=== PATIENT | female | born 1965 | race Caucasian/White ===

== ENCOUNTER → 2017-08-19 | Outpatient (CLI) | payer OTHER ==
[~2017-08-19] MED LIST: ACETAMINOPHEN; B12INJ IM; BENADRYL25 MG PO; BETAMETHASONE D15 G1 TOP; CARDIZEM CD120 MG PO; CARDIZEM CD180 MG PO; CARDIZEM60 MG PO; DUTOPROL 50-121 EACH PO; HYDROCHLOROTH12.5 M2 PO; HYDROCODONE; IBUPROFEN 200200 M1 PO; MULTIVITAMINS1 EAC7 PO; NEXIUM40 MG PO; ONDANSETRON HCL4 M2 PO; PRADAXA150 MG PO; RYTHMOL SR225 MG PO; SOTALOL 120 MG120 M1 PO; SOTALOL AF120 MG PO; THERA1 EAC1 PO; VITAMIN D 5050000 I1 PO; VITAMIN D1000 UNI1 PO; XARELTO10 MG PO; ZYRTEC10 MG PO
[2017-08-19 09:19] LABS: HEMATOCRIT 39.7 % (37.0-47.0); HEMOGLOBIN 13.6 gm/dL (12.0-15.0); MCH 31.7 pg (26.0-34.0); MCHC 34.2 g/dL (28.0-37.0); MCV 92.8 fL (80.0-100.0); RBC 4.28 mil/uL (4.20-5.00); RDW 13.3 % (10.5-14.5)
[2017-08-19 09:40] LABS: CALCIUM 8.9 mg/dL (8.5-10.1); CREATININE 0.8 mg/dL (0.6-1.0); POTASSIUM 4.3 mmol/L (3.5-5.1)
[2017-08-19 09:45] LABS: ALBUMIN 3.4 g/dL (3.4-5.0); TOTAL BILIRUBIN 0.4 mg/dL (<0.1-1.0); TOTAL PROTEIN 6.6 g/dL (6.4-8.2)
== END ==
LOC: CAT 08:14
PROVIDERS: Internal Medicine Cardiovascular Disease
DX: I48.91 Unspecified atrial fibrillation (principal); I25.10 Atherosclerotic heart disease of native coronary artery without angina pectoris; J98.11 Atelectasis

== ENCOUNTER 2017-09-02 06:53 | Inpatient (IN) | payer OTHER ==
[~2017-09-02] VITALS: Ht 165.1 cm; Wt 108.0 kg
--- NOTE | ~2017-09-02 | D ---
[facility] [place] [address] DISCHARGE SUMMARY Name: FLO KHAN Room #: 201-P [facility] M.R.#: [id number] Admission: 09/02/17 Attend Phys: Abner Devine MD Discharge: 09/05/17 Date of : 67 Report #: [id number] THIS REPORT FOR: //name// CC: Abner Devine Tunde Youssef DATE OF SERVICE: 09/05/2017 DISCHARGE DIAGNOSIS: Paroxysmal atrial fibrillation. PROCEDURES PERFORMED: AFib ablation. HISTORY OF PRESENT ILLNESS: The patient is a 52-year-old female with history of paroxysmal AFib, here for an ablation. She underwent successful AFib ablation with isolation of the pulmonary veins. There were no procedural complications. HOSPITAL COURSE: Post-procedure, the patient did go back into atrial fibrillation with rapid ventricular response. As such, I recommended starting an IV amiodarone drip. On Tuesday, she was still having AFib with RVR, we transitioned her over to oral amiodarone and on Tuesday, she remained in sinus rhythm other than some brief episodes of paroxysmal AFib. On Tuesday, she was doing well. She was not having any chest pain or shortness of breath. Her telemetry showed sinus rhythm. As such, she was deemed stable for discharge home. She will be discharged on her Pradaxa 150 twice a day, amiodarone 400 mg a day for 1 week and then decrease the dose to 200 mg a day. We increased her diltiazem to 240 mg a day. She will follow up with me in clinic in 2 weeks. <ELECTRONICALLY SIGNED> By: Abner Devine MD 09/30/17 1752 0842 0901 Abner Devine MD /nt
--- NOTE | ~2017-09-02 | P ---
[facility] [place] [address] PROCEDURE REPORT Name: FLO KHAN Room #: 201-P [facility] M.R.#: [id number] Admission: 09/02/17 Attend Phys: Abner Devine MD Discharge: 09/05/17 Date of : 67 Report #: [id number] THIS REPORT FOR: //name// CC: Abner Devine Tunde Youssef PROCEDURE PERFORMED: 1. Ablation of atrial fibrillation, CPT code 20296. 2. 3D mapping, CPT code 93318. 3. Intracardiac echo, CPT code 35169. 4. EP left atrial pacing and recording, CPT code 47954. HISTORY: The patient is a 52-year-old with a history of prior gastric bypass surgery as well as paroxysmal atrial fibrillation who has had worsening episodes despite sotalol therapy. She is here for an AFib ablation. ANESTHESIA: The patient underwent general anesthesia with no anesthesia related complications. DESCRIPTION OF PROCEDURE: The patient underwent informed consent. We discussed the details of the procedure including the risks, which include but not limited to bleeding, vascular damage, cardiac perforation as well as stroke or OR. She understood these risks and was willing to proceed. As such, the patient was brought to the EP laboratory in a fasting and nonsedated state and prepped and draped in a sterile fashion. I then obtained access to the right femoral vein x 3, placing an 8-Austrian, 9-Austrian and 7-Austrian locking sheath into the right femoral artery using the modified Seldinger technique. Next, under fluoroscopy, I placed an ice catheter and a decapolar catheter into the right atrium. Of note, it was difficult to enter her heart from the inferior vena cava for whatever reason. I then was able to get the ice catheter at a satisfactory position. I then paced the decapolar catheter into the coronary sinus. Of note, this kept slipping out despite 3-4 attempts of putting it into the coronary sinus. As such, this catheter was left in the right atrium. Next, the patient was systemically heparinized and an SL1 sheath was taken to the right atrium. Of note, I spent probably 10 minutes just trying to get my wire into the right atrium and then placing it up into the superior vena cava, but then was able to position it. I had to make 3 attempts to perform a transseptal due to her challenging anatomy. Her atrium was a rather flat and finding an appropriate location to perform transseptal was somewhat challenging. Eventually, I was able to get transseptal using my [place] needle. I was able to exchange my SL1 sheath for my cryo sheath. At baseline, the patient was in atrial fibrillation with rapid ventricular response. Using intracardiac ultrasound, it appeared that the patient had almost a left common ostium. Then, there were right superior and right inferior pulmonary veins. This was merged with the CT scan and a 3D geometry of the left atrium was created using a Lasso catheter. Next, I placed the cryoballoon into the left [address] [address] PROCEDURE REPORT Name: FLO KHAN Room #: 201-P [facility] M.R.#: [id number] Admission: 09/02/17 Attend Phys: Abner Devine MD Discharge: 09/05/17 Date of : 67 Report #: [id number] atrium and we performed a 3-4 freezes in the superior branch of the left common ostium and performed 3 freezes in the inferior branch of the left common ostium. It was difficult to discern if I had achieved isolation; therefore, we performed a cardioversion, but she rapidly went back into AFib. I therefore decided to turn attention to the other veins. I then isolated the right superior pulmonary vein and while freezing this vein, there was weakening of the phrenic nerve. I came off and after 5-10 minutes, the phrenic nerve was back to normal strength. Fortunately, the right superior vein isolated during the first freeze. I then turned my attention to the right inferior pulmonary vein and this vein isolated within 30-40 seconds. As such, I performed a single 3-minute freeze in this vessel. I then turned my attention to the left common vessel. I removed the cryoablation balloon and placed the Lasso catheter into the inferior and superior branches of the common ostium and this appeared to be isolated. I did perform a cardioversion to restore sinus rhythm and this appeared isolated. We performed pacing around the Lasso and there was evidence of exit block throughout the left superior, left inferior and common region of this vessel. As such, the patient was maintaining sinus rhythm. All vessels were isolated and the procedure was concluded. I pulled the cryo sheath to the right atrium. I then used intracardiac ultrasound to verify that there was no evidence of a pericardial effusion. I then pulled all catheters. The patient received systemic protamine and once the ACT was within acceptable range, sheaths were pulled, hemostasis was obtained and the patient awoke neurologically and hemodynamically intact. CONCLUSIONS: 1. Successful isolation of the left superior, left inferior, right superior and right inferior pulmonary veins. 2. Transient phrenic nerve weakening during the freezing of the right superior pulmonary veins with return to full strength at the conclusions of the procedure. <ELECTRONICALLY SIGNED> By: Abner Devine MD 09/30/17 1754 1143 2111 Abner Devine MD /jemima
[~2017-09-02 06:53] MED LIST changes: -NEXIUM40 MG PO; -PRADAXA150 MG PO
[2017-09-02] MEDS ORDERED: NEXIUM40 MG PO (07:09)
[2017-09-02] MEDS ORDERED: PRADAXA150 MG PO (07:09)
[2017-09-02] MEDS ORDERED: SOTALOL 120 MG120 M1 PO (07:12)
[2017-09-02 07:16] LABS: HEMATOCRIT 40.8 % (37.0-47.0); HEMOGLOBIN 13.7 gm/dL (12.0-15.0); MCH 31.5 pg (26.0-34.0); MCHC 33.6 g/dL (28.0-37.0); MCV 93.8 fL (80.0-100.0); PLATELET COUNT 299 thou/uL (150-400); RBC 4.35 mil/uL (4.20-5.00); WBC 6.2 thou/uL (4.0-11.0)
[2017-09-02 07:24] LABS: CALCIUM 9.3 mg/dL (8.5-10.1); CREATININE 0.8 mg/dL (0.6-1.0); POTASSIUM 3.4 mmol/L (3.5-5.1)
[2017-09-02 07:30] LABS: ALBUMIN 3.6 g/dL (3.4-5.0); TOTAL BILIRUBIN 0.4 mg/dL (<0.1-1.0); TOTAL PROTEIN 7.4 g/dL (6.4-8.2)
[2017-09-02 07:36] VITALS: BP 137/88
[2017-09-02 07:39] LABS: APTT 30.1 Seconds (24.5-32.8); INR 1.1; PROTIME 10.9 Seconds (9.3-11.4)
[2017-09-02 08:15] LABS: ABSOLUTE NEUTROPHILS 3.7 thou/uL (1.4-8.2); ATYPICAL LYMPHS 1 %
[2017-09-02 13:53] VITALS: BP 125/56
[2017-09-02 16:05] VITALS: BP 120/75
[2017-09-02 20:45] VITALS: BP 108/55
[2017-09-03 05:06] VITALS: BP 113/76
[2017-09-03 08:03] VITALS: BP 119/70
[2017-09-03 11:01] VITALS: BP 141/72
[2017-09-03 15:35] VITALS: BP 126/847
[2017-09-03 19:16] VITALS: BP 111/65
[2017-09-04 07:35] VITALS: BP 112/61
[2017-09-04 11:20] VITALS: BP 112/70
[2017-09-04 15:40] VITALS: BP 141/72
[2017-09-04 19:28] VITALS: BP 118/61
[2017-09-04 23:17] VITALS: BP 110/54
[2017-09-05 03:04] VITALS: BP 120/76
[2017-09-05 08:00] VITALS: BP 119/66
[2017-09-05 10:19] VITALS: BP 119/66
== END 2017-09-05 10:50 | disposition home or self-care (01) | DRG 274 ==
LOC: CATH 06:53 → 2N 13:29 → CATH 15:26 → 2N 09-05 10:50
PROVIDERS: Internal Medicine Cardiovascular Disease
PROC: 02K83ZZ Map Conduction Mechanism, Percutaneous Approach (ICD-10-PCS; principal; 2017-09-02)
PROC: 02583ZZ Destruction of Conduction Mechanism, Percutaneous Approach (ICD-10-PCS; principal; 2017-09-02)
DX: I48.0 Paroxysmal atrial fibrillation (principal); Z79.899 Other long term (current) drug therapy
CPT/HCPCS: 10081; 62110; 62900; 65020; 65040; 65043; 70005

== ENCOUNTER 2019-02-21 06:49 | Observation (INO) | payer OTHER ==
[~2019-02-21] VITALS: Ht 165.1 cm; Wt 108.0 kg
[~2019-02-21 06:49] MED LIST changes: +NEXIUM40 MG PO; +PRADAXA150 MG PO
[2019-02-21 07:17] VITALS: BP 113/66
[2019-02-21 07:27] LABS: ABSOLUTE NEUTROPHILS 3.1 thou/uL (1.4-8.2); BASOPHILS 0.8 % (0.0-2.0); EOSINOPHILS 3.5 % (0.0-3.0); HEMATOCRIT 36.7 % (37.0-47.0); HEMOGLOBIN 12.7 gm/dL (12.0-15.0); LYMPHOCYTES 26.7 % (24.0-44.0); MCH 32.4 pg (26.0-34.0); MCHC 34.6 g/dL (28.0-37.0); MCV 93.7 fL (80.0-100.0); MONOCYTES 11.5 % (1.0-8.0); PLATELET COUNT 301 thou/uL (150-400); POLYS 57.5 % (36.0-66.0); RBC 3.92 mil/uL (4.20-5.00); RDW 13.2 % (10.5-14.5); WBC 5.4 thou/uL (4.0-11.0)
[2019-02-21] MEDS ORDERED: CARDIZEM CD240 MG PO (07:28)
[2019-02-21] MEDS ORDERED: COSENTYX S150 MG/1 M INJECTION (07:28)
[2019-02-21] MEDS ORDERED: TOPROL XL25 MG PO (07:29)
[2019-02-21 07:40] LABS: CALCIUM 9.3 mg/dL (8.5-10.1); CREATININE 0.8 mg/dL (0.6-1.0); POTASSIUM 3.2 mmol/L (3.5-5.1)
[2019-02-21 07:45] LABS: APTT 27.5 Seconds (24.5-32.8); PROTIME 10.5 Seconds (9.3-11.4)
[2019-02-21 07:47] LABS: ALBUMIN 3.3 g/dL (3.4-5.0); TOTAL BILIRUBIN 0.4 mg/dL (<0.1-1.0); TOTAL PROTEIN 7.3 g/dL (6.4-8.2)
[2019-02-21 14:45] VITALS: BP 116/73
--- NOTE | 2019-02-21 14:49 | NUR ---
REC PT FROM PACU WITH ANOTHER RN HELPING W/CASE LOAD. PT IS A&0X4, SITES WERE VIEWED AND WNL, PT ACCOMPANIED BY SPOUSE, CALLED DR. ZELDA WOMACK TO SEE IF HE WANTED IVF TO RUN PER NORM. CALLED DIETARY TO GET PT AND SPOUSE FOOD. TELE MONITORED, BLISTERS FROM ALLERGIC REACTIONS TO ELECTRODES PASSED ALONG FROM OTHER STAFF. WILL CONTINUE TO MONITOR. DECLINES NEED FOR PAIN MEDICATION AT THIS TIME
[2019-02-21 20:35] VITALS: BP 124/60
[2019-02-22 00:45] VITALS: BP 110/64
--- NOTE | 2019-02-22 03:13 | NUR ---
ASSUMED PT CARE AT 1900. PT ON BEDREST POST ABLATION. PT OFF BEDREST AT ABOUT 2000, CAMPBELL DC'D, GROIN SITES CLEAN, DRY AND INTACT. VITAL SIGNS STABLE, ASSESSMENT CHARTED. NO COMPLAINTS OF PAIN. RESTED WELL THROUGH THE NIGHT. VOIDED WELL POST CAMPBELL. PROGRESSING TOWARD PLAN OF CARE. WILL CONTINUE TO MONITOR. NSR WITH PACs ON THE MONITOR.
[2019-02-22 04:45] VITALS: BP 129/67
--- NOTE | 2019-02-22 08:13 | EKG ---
[address] [address] ELECTROCARDIOGRAM REPORT Name: FLO KHAN Room #: 212-[facility]#: [id number] Admission: 02/21/19 Attend Phys: Abner Devine MD Discharge: Date of : 67 Report #: [id number] THIS REPORT FOR: //name// [facility] Test Date: 2019-02-21 Test Time: 16:44:48 Pat Name: FLO KHAN Department: Room: [facility] Gender: F [employer] Manager: MAYURI : 1965 Requested By: Abner Devine Order Number: [id number] MD: Fadi Pastor Measurements Intervals [place] Rate: 101 P: [place]: QRS: 21 QRSD: 100 T: 40 QT: 409 QTc: 531 Interpretive Statements Atrial fibrillation Otherwise no significant abnormality Compared to ECG 07/02/2015 14:18:59 Sinus rhythm no longer present Electronically Signed On 02-22-2019 8:13:32 CDT by Fadi Pastor [email or web address] <ELECTRONICALLY SIGNED> By: Fadi Pastor MD, [facility] 02/22/19812 1644 164 Fadi Pastor MD, [facility] /EPI
--- NOTE | 2019-02-22 08:24 | EKG ---
[address] [address] ELECTROCARDIOGRAM REPORT Name: FLO KHAN Room #: 212-[facility]#: [id number] Admission: 02/21/19 Attend Phys: Abner Devine MD Discharge: Date of : 67 Report #: [id number] THIS REPORT FOR: //name// [facility] Test Date: 2019-02-22 Test Time: 06:57:11 Pat Name: FLO KHAN Department: Room: 212 Gender: F Health [employer]itarian: BEHZAD : 1965 Requested By: Abner Devine Order Number: [id number] MD: Fadi Pastor Measurements Intervals [place] Rate: 112 P: [place]: QRS: 25 QRSD: 97 T: 47 QT: 356 QTc: 486 Interpretive Statements Atrial fibrillation Borderline T wave abnormalities Borderline prolonged QT interval Compared to ECG 07/02/2015 14:18:59 No significant change was found Electronically Signed On 02-22-2019 8:24:38 CDT by Fadi Pastor [email or web address] <ELECTRONICALLY SIGNED> By: Fadi Pastor MD, [facility] 02/22/1924 0657 0657 Fadi Pastor MD, [facility] /EPI
[2019-02-22 09:03] VITALS: BP 134/73
[2019-02-22] MEDS ORDERED: ELIQUIS5 MG PO (09:09)
[2019-02-22] MEDS ORDERED: TAMBOCOR 100 M100 M1 PO (09:09)
[2019-02-22 10:19] VITALS: BP 134/73
--- NOTE | 2019-02-22 11:06 | NUR ---
PATIENT ALERT AND ORIENTED AND COOPERATIVE WITH POC. PATIENT DISCHARGE HOME WITH IN STABLE CONDITION WITH DISCHARGE ORDERS, INSTRUCTIONS, PRESCRIPTIONS AND ALL PERSONAL BELONGINGS. DISCHARGE IN WHEELCHAIR AND PERSONAL VEHICLE BY .
--- NOTE | 2019-03-09 15:51 | D ---
[facility] [place] [address] DISCHARGE SUMMARY Name: FLO KHAN Room #: 212-P [facility] Emre Cunningham#: [id number] Admission: 02/21/19 Attend Phys: Abner Devine MD Discharge: 02/22/19 Date of : 67 Report #: [id number] THIS REPORT FOR: //name// CC: Abner Mcbride Yogiovanny Jonathan Allen DISCHARGE DIAGNOSES: 1. Atrial fibrillation. 2. Atrial flutter. PROCEDURES PERFORMED: AFib and atrial flutter ablation. HISTORY: The patient is a 53-year-old with a history of atrial fibrillation, atrial flutter status post prior ablation who has had clinical recurrence and she is here for repeat ablation. She underwent successful ablation yesterday. I re-isolated her left common ostium, which was reconnected and her right inferior pulmonary vein. I then performed a roofline and posterior box lesion set. Post-ablation, there was wide circumferential ablation of the pulmonary veins. Cardioversion was performed and sinus rhythm was restored. I then performed atrial flutter ablation on the right side with evidence of bidirectional block post-ablation. There were no procedure-related complications. HOSPITAL COURSE: The patient was monitored in the CCU overnight. The night after the ablation, she had gone back into atrial fibrillation and I put her on flecainide. She converted to sinus rhythm overnight and went back into atrial fibrillation in the morning. Her rates were well controlled. On the day of discharge, the patient denied any chest pain, shortness of breath, PND, orthopnea, presyncope or syncope. PHYSICAL EXAMINATION: HEART: Regular rate and rhythm. LUNGS: Clear to auscultation bilaterally. ABDOMEN: Soft, nontender, nondistended. EXTREMITIES: No clubbing, cyanosis or edema, and her bilateral groins showed no significant bruising or hematoma. As such, she was deemed stable for discharge home. We will discharge her on flecainide 150 and her beta vasquez. We will discontinue her diltiazem. She will continue on anticoagulation. We will see her back next week for a quick followup visit to ensure that she is converted with the flecainide therapy. If she remains in AFib, we will perform a cardioversion. I have also recommended [facility] [address] [place] [address] DISCHARGE SUMMARY Name: FLO KHAN Room #: [address] [place] [address] Emre Cunningham#: [id number] Admission: 02/21/19 Attend Phys: Abner Devine MD Discharge: 02/22/19 Date of : 67 Report #: [id number] that she undergo implantation of implantable loop recorder, so we can better optimize her rhythm management. <ELECTRONICALLY SIGNED> By: Abner Devine MD 03/09/19 1551 [id number] 1001 Abner Devine MD /nt
--- NOTE | 2019-03-12 12:52 | P ---
[facility] [place] [address] PROCEDURE REPORT Name: FLO KHAN Room #: 212-P [facility] Emre Cunningham#: [id number] Admission: 02/21/19 Attend Phys: Anber Devine MD Discharge: 02/22/19 Date of : 67 Report #: [id number] THIS REPORT FOR: //name// CC: Abner Allen PREOPERATIVE DIAGNOSES: Atrial fibrillation and atrial flutter. POSTOPERATIVE DIAGNOSES: Atrial fibrillation and atrial flutter. PROCEDURES PERFORMED: 1. Atrial fibrillation ablation, CPT code 77163. 2. 3D mapping, CPT code 17925. 3. Intracardiac echo, CPT code 42693. 4. Focal ablation, CPT code 68783. 5. Second pathway ablation, CPT code 64669. ANESTHESIA: The patient underwent general anesthesia with no anesthesia related complications. DESCRIPTION OF PROCEDURE: The patient underwent informed consent. We discussed the details of the procedure including the risks, which included, but not limited to bleeding, vascular damage, cardiac perforation as well as stroke or NM. She understood these risks and is willing to proceed. The patient was brought to the EP laboratory in a fasting and sedated state and prepped and draped in a sterile fashion. I obtained access to the right femoral vein x 2 and the left femoral veins x 2. In the right femoral vein placed two 8-Somali short sheaths. In the left femoral vein placed a 7 and 9-Somali short sheath. Next, under fluoroscopy, I placed a decapolar catheter into the coronary sinus and ICE catheter into the right atrium. Using intracardiac ultrasound, I verified the anatomy, which included a left common and two right-sided veins. Next, the patient was systemically heparinized and a transseptal was performed using an SL1 sheath and a [place] needle. I was able to get my wire into the left atrium but could not advance my SL1 sheath into the left atrium. Therefore, I advanced a Powerflex 6 mm x 4 cm balloon across the interatrial septum and dilated the septum. I was then able to advance my SL1 sheath into the left atrium and I placed the Lasso catheter into the left atrium. I then created a detailed 3D voltage map of the left atrium, which showed that the patient had developed reconnection of the left common ostium and reconnection of the right inferior pulmonary vein. A second transseptal was performed using an SL1 sheath and this was performed via the previously created transseptal site. I then placed a SmartTouch ThermoCool ablation catheter into the left atrium and I re-isolated the left common ostium and also re-isolated the right inferior pulmonary vein. [address] [address] PROCEDURE REPORT Name: FLO KHAN Room #: 212-P [facility] Emre Cunningham#: [id number] Admission: 02/21/19 Attend Phys: Abner Devine MD Discharge: 02/22/19 Date of : 67 Report #: [id number] An additional focal ablation was performed with creation of a posterior roofline as well as additional ablation along the posterior aspects of the left and right pulmonary veins. Post-ablation voltage map showed that all veins were now isolated and we had created a roofline as well. Post creation of this roofline, the patient was cardioverted and everything was reinterrogated and all veins appeared isolated. Next, a right-sided atrial flutter ablation was performed. There was evidence of a deep pouch noted in this region based on intracardiac ultrasound tracing of the cavotricuspid isthmus. Next, ablation was performed via the SL1 sheath and the [employer] ThermoCool ablation catheter. The transisthmus conduction time preablation was 50 milliseconds. I performed several drag lesions using the SL1 sheath, but this was unsuccessful. Therefore, I transitioned over to a ramp sheath. This allowed for better lesion creation and the transisthmus conduction time increased to 110 milliseconds. Additional ablation was performed along the isthmus and the transisthmus conduction time increased to 155 milliseconds. There was evidence of bidirectional block. As such, the procedure was concluded. Using intracardiac ultrasound, I verified there was no pericardial effusion. The patient received systemic protamine and once ACT was within acceptable range, all catheters and sheaths were pulled and hemostasis was obtained. The patient awoke neurologically and hemodynamically intact. No complications and no significant bleeding. Post-ablation, the patient was in sinus rhythm with sinus cycle length of 855 milliseconds, AK interval 180 milliseconds, QRS duration 80 milliseconds, QT interval 450 milliseconds. CONCLUSIONS: 1. Successful AFib ablation with re-isolation of the left common ostium in the right inferior pulmonary vein. 2. Successful creation of a posterior roofline lesion set. 3. Successful atrial flutter ablation with evidence of bidirectional block. <ELECTRONICALLY SIGNED> By: Abner Devine MD 03/12/19 1252 1527 0025 Abner Devine MD /nt
== END 2019-02-22 10:51 | disposition home or self-care (01) ==
LOC: CATH 06:49 → 2N 14:36 → ENTRNSPT 02-22 10:37 → EDTRNSPTSTS 02-22 10:39 → 2N 02-22 10:51
PROVIDERS: ADMIT Internal Medicine Cardiovascular Disease
DX: I48.91 Unspecified atrial fibrillation (principal); I48.92 Unspecified atrial flutter; Z79.899 Other long term (current) drug therapy
CPT/HCPCS: 62110; 62900; 65020; 65040; 70005

== ENCOUNTER → 2019-03-28 | Outpatient (CLI) | payer OTHER ==
[~2019-03-28] MED LIST changes: +CARDIZEM CD240 MG PO; +COSENTYX S150 MG/1 M INJECTION; +ELIQUIS5 MG PO; +TAMBOCOR 100 M100 M1 PO; +TOPROL XL25 MG PO
--- NOTE | ~2019-03-28 | P ---
[facility] [place] [address] PROCEDURE REPORT Name: ERINFLO Room #: REG ELOINA Marisa#: [id number] Admission: 03/28/19 ������������������ Attend Phys: Abner Devine MD Discharge: ������������������ Date of : 67 Report #: [id number] THIS REPORT FOR: //name// CC: Abner Medina PROCEDURE: Implantable loop recorder insertion. PREOPERATIVE DIAGNOSES: Palpitations and atrial fibrillation. POSTPROCEDURE DIAGNOSES: Palpitations and atrial fibrillation. DESCRIPTION OF PROCEDURE: The patient underwent informed consent. She was prepped and draped in a sterile fashion. I injected lidocaine at the incision site. Incision was made, device was injected under the skin. A single layer of suture was performed and surgical glue was placed at the outer skin layer. There are no procedure-related complications. The implanted device was a [employer] model #3500, serial [id number]. CONCLUSIONS: Successful implantation of an implantable loop recorder. ��������������������������������������������� ���������������������������������������� By: ��������������������������������������������� 1258 0100 Abner Devine MD /nt
[2019-03-28 10:57] VITALS: BP 129/65
[2019-03-28 13:24] VITALS: BP 111/56
== END | disposition home or self-care (01) ==
LOC: CATH 10:30
DX: I48.91 Unspecified atrial fibrillation (principal); R00.2 Palpitations; Z79.01 Long term (current) use of anticoagulants; Z79.899 Other long term (current) drug therapy